=== PATIENT | male | born 1960 | race Caucasian/White ===

== ENCOUNTER 2021-01-14 07:24 | Day surgery (SDC) | payer MEDICAID ==
[~2021-01-14] VITALS: Ht 182.9 cm; Wt 99.8 kg
[~2021-01-14 07:24] MED LIST: AMIO200T33 PO; APIX5TAB PO; FERR-20 PO; FURO20TA3 PO
[2021-01-14] MEDS ORDERED: IODIXANOL 320MG/ML 100ML BTL IV ONE (07:44)
[2021-01-14] MEDS ORDERED: LIDOCAINE 2%HCL (LOCAL ANESTH.) INJ 20ML MDV ONE (07:44)
[2021-01-14] MEDS ORDERED: VERAPAMIL 2.5MG/ML INJ 2ML VIAL IV ONE (08:09)
[2021-01-14] MEDS ORDERED: fentaNYL CITRATE 100 MCG/2 ML VL ONE (08:09)
[2021-01-14] MEDS ORDERED: HEPARIN SODIUM (PORCINE) 5000 UNITS/ML 1ML VIAL ONE (08:09)
[2021-01-14] MEDS ORDERED: ANGIOMAX 250 MG VIAL IV ONE (08:09)
[2021-01-14] MEDS ORDERED: SODIUM CHL 0.9% 0 ML ONE (08:10)
[2021-01-14] MEDS ORDERED: MIDAZOLAM HCL 1MG/1ML-2 ML VIAL ONE (08:10)
[2021-01-14] MEDS ORDERED: LEVO25TA6 PO (09:24)
[2021-01-14] MEDS ORDERED: METO25TA5 PO (09:24)
[2021-01-14] MEDS ORDERED: ONDANSETRON HCL 4 MG/2 ML VIAL IV PRN (10:00)
[2021-01-14] MEDS ORDERED: ACETAMINOPHEN 500 MG TAB PO PRN (10:00)
[2021-01-14] MEDS ORDERED: HYDROcodone-ACET 5/325MG TAB PO PRN (10:00)
== END 2021-01-14 11:37 | disposition home or self-care (01) ==
LOC: CATH 07:24
PROVIDERS: ATTEND Internal Medicine Cardiovascular Disease
DX: I25.10 Atherosclerotic heart disease of native coronary artery without angina pectoris (principal); E78.5 Hyperlipidemia, unspecified; I11.0 Hypertensive heart disease with heart failure; I42.8 Other cardiomyopathies; Z68.29 Body mass index [BMI] 29.0-29.9, adult; Z20.822 Contact with and (suspected) exposure to COVID-19; Z98.890 Other specified postprocedural states; Z79.899 Other long term (current) drug therapy; Z87.891 Personal history of nicotine dependence
CPT/HCPCS: 93460; C1751; C1769; C1887; C1894; J1644; J7030; Q9967; U0003; 99152; 99153; J2250

== ENCOUNTER 2021-10-18 17:57 | Inpatient (IN) | payer MEDICAID ==
[~2021-10-18] VITALS: Ht 182.9 cm; Wt 97.0 kg
[~2021-10-18 17:57] MED LIST changes: +LEVO25TA6 PO; +METO25TA5 PO
[2021-10-18 20:32] LABS: Eosinophils # (auto) 0.1 10 ^3/uL (0-0.8); Eosinophils % (auto) 1.6 % (0.0-7.0); Lymphocytes # (auto) 1.5 10 ^3/uL (0.4-5.4); Nucleated Red Blood Cells % 0.1 %
[2021-10-18 20:34] LABS: Basophils # (auto) 0 10 ^3/uL (0-0.2); Basophils % (auto) 0.5 % (0.0-2.0); Hematocrit 48.8 % (41.0-53.0); Hemoglobin 16.4 g/dL (13.5-17.5); Lymphocytes % (auto) 17.2 % (10.0-50.0); Mean Corpuscular Hemoglobin 36.2 pg (28.0-32.0); Mean Corpuscular Hgb Conc. 33.7 g/dL (32.0-36.0); Mean Corpuscular Volume 107.3 fL (80.0-100.0); Monocytes # (auto) 0.8 10 ^3/uL (0-1.3); Monocytes % (auto) 9.7 % (0.0-12.0); Red Blood Cells 4.55 10^6/uL (4.5-5.90); Red Cell Distribution Width 15.1 % (11.8-14.3); White Blood Cell 8.5 10^3/uL (4.4-10.8)
[2021-10-18 20:50] LABS: Partial Thromboplastin Time 29.9 sec (23.6-33.0)
[2021-10-18 20:53] LABS: Albumin 3.6 g/dL (3.4-5.0); Calcium 8.7 mg/dL (8.5-10.1); Potassium 4.1 mmol/L (3.5-5.1)
[2021-10-18 21:00] LABS: BUN/Creatinine Ratio 8.4; Bilirubin, Total 0.9 mg/dL (0.2-1.0); Total Protein 8.4 g/dL (6.4-8.2)
[2021-10-19] MEDS ORDERED: TETANUS-DIPTH-ACEL PERTUSSIS 0.5ML SYR Tdap IM ONE (01:00)
[2021-10-19] MEDS ORDERED: IOHEXOL 300 MG/ML 100ML BOTTLE IJ ONE (03:52)
[2021-10-19] MEDS ORDERED: LORazepam 2MG/ML-1ML VIAL IV ONE (04:15)
[2021-10-19] MEDS ORDERED: LORazepam 2MG/ML-1ML VIAL ONE (04:16)
[2021-10-19] MEDS ORDERED: dilTIAZem 25 MG/5 ML VIAL IV ONE (06:45)
[2021-10-19] MEDS ORDERED: CLINDAMYCIN 900MG IV 50 ML IV ONE (09:15)
[2021-10-19] MEDS ORDERED: dilTIAZem 125mg/125ml BAG KIT 125 ML IV ONE (09:15)
[2021-10-19] MEDS ORDERED: MORPHINE SULFATE 4 MG/ML SYR/VIAL IV PRN (10:00)
[2021-10-19] MEDS ORDERED: NITROGLYCERIN 0.4 MG SL TAB SL PRN (10:00)
[2021-10-19] MEDS ORDERED: CLINDAMYCIN 600MG IV 50 ML IV ONE (10:00)
[2021-10-19] MEDS ORDERED: MORPHINE SULFATE INJECTION 2 MG/ML SYRG IV PRN (10:00)
[2021-10-19] MEDS ORDERED: ACETAMINOPHEN 325 MG TAB PO PRN (10:00)
[2021-10-19] MEDS ORDERED: ONDANSETRON HCL 4 MG/2 ML VIAL IV PRN (10:00)
[2021-10-19] MEDS ORDERED: dilTIAZem 125mg/125ml BAG KIT 125 ML IV SCH ×2 (10:15→16:45)
[2021-10-19] MEDS: SODIUM CHLORIDE 0.9% 1,000 ML IV SCH ×2 (10:25→17:56)
[2021-10-19] MEDS ORDERED: AMIODARONE 450mg/250ml AE 250 ML IV SCH ×2 (11:30→17:30)
[2021-10-19] MEDS: FOLIC ACID 1 MG, MULTIPLE VITAMIN 10 ML, MAGNESIUM SULF SDV 50% 8 MEQ, THIAMINE INJ 100... INJ SCH ×5 (12:30)
[2021-10-19] MEDS: LORazepam 2MG/ML-1ML VIAL IV PRN (13:33)
[2021-10-19] MEDS: chlordiazePOXIDE HCL 25 MG CAP PO PRN (13:33)
[2021-10-19] MEDS ORDERED: hydrALAZINE HCL 20 MG/ML VL IV PRN (16:45)
[2021-10-19] MEDS: SACUBITRIL-VALSARTAN 24mg/26mg TAB PO SCH (17:29)
[2021-10-19] MEDS: CARVEDILOL 3.125 MG TAB PO SCH (17:29)
[2021-10-20] MEDS: SODIUM CHLORIDE 0.9% 1,000 ML IV SCH ×3 (03:08→19:20)
[2021-10-20] MEDS: LEVOTHYROXINE SODIUM 25 MCG TAB PO SCH (07:58)
[2021-10-20 08:46] LABS: Basophils # (auto) 0 10 ^3/uL (0-0.2); Basophils % (auto) 0.6 % (0.0-2.0); Eosinophils # (auto) 0.1 10 ^3/uL (0-0.8); Eosinophils % (auto) 1.6 % (0.0-7.0); Hematocrit 45.5 % (41.0-53.0); Hemoglobin 15.6 g/dL (13.5-17.5); Lymphocytes # (auto) 0.9 10 ^3/uL (0.4-5.4); Lymphocytes % (auto) 11.4 % (10.0-50.0); Mean Corpuscular Hemoglobin 36.9 pg (28.0-32.0); Mean Corpuscular Hgb Conc. 34.3 g/dL (32.0-36.0); Mean Corpuscular Volume 107.8 fL (80.0-100.0); Monocytes # (auto) 1.1 10 ^3/uL (0-1.3); Monocytes % (auto) 13.9 % (0.0-12.0); Neutrophils # (auto) 5.7 10 ^3/uL (1.6-8.6); Neutrophils % (auto) 72.5 % (37.0-80.0); Nucleated Red Blood Cells % 0.1 %; Red Blood Cells 4.22 10^6/uL (4.5-5.90); Red Cell Distribution Width 14.7 % (11.8-14.3); White Blood Cell 7.8 10^3/uL (4.4-10.8)
[2021-10-20 08:55] LABS: Potassium 3.8 mmol/L (3.5-5.1)
[2021-10-20 09:11] LABS: Albumin 3.2 g/dL (3.4-5.0); BUN/Creatinine Ratio 10.8; Bilirubin, Total 2.5 mg/dL (0.2-1.0); Calcium 8.6 mg/dL (8.5-10.1); Total Protein 7.3 g/dL (6.4-8.2)
[2021-10-20] MEDS: dilTIAZem HCL 60 MG TAB PO SCH ×4 (09:32→23:25)
[2021-10-20] MEDS: CARVEDILOL 3.125 MG TAB PO SCH ×2 (09:33→22:00)
[2021-10-20] MEDS: SACUBITRIL-VALSARTAN 24mg/26mg TAB PO SCH ×2 (09:33→22:00)
[2021-10-20] MEDS: chlordiazePOXIDE HCL 25 MG CAP PO PRN ×2 (09:33→23:39)
[2021-10-20] MEDS: LORazepam 2MG/ML-1ML VIAL IV PRN (09:33)
[2021-10-20] MEDS ORDERED: LEVO75TA6 PO (10:13)
[2021-10-20] MEDS ORDERED: METO25TA93 PO (10:13)
[2021-10-20] MEDS: FOLIC ACID 1 MG, MULTIPLE VITAMIN 10 ML, MAGNESIUM SULF SDV 50% 8 MEQ, THIAMINE INJ 100... INJ SCH ×5 (13:13)
[2021-10-20] MEDS: HYDROcodone-ACET 5/325MG TAB PO PRN (23:24)
[2021-10-21] MEDS: SODIUM CHLORIDE 0.9% 1,000 ML IV SCH ×4 (03:40→22:00)
[2021-10-21] MEDS: dilTIAZem HCL 60 MG TAB PO SCH ×3 (06:22→19:32)
[2021-10-21] MEDS: CARVEDILOL 3.125 MG TAB PO SCH ×3 (07:32→07:34)
[2021-10-21] MEDS: chlordiazePOXIDE HCL 25 MG CAP PO PRN (07:48)
[2021-10-21] MEDS: HYDROcodone-ACET 5/325MG TAB PO PRN (07:48)
[2021-10-21] MEDS: LEVOTHYROXINE SODIUM 25 MCG TAB PO SCH (07:48)
[2021-10-21] MEDS ORDERED: IOHEXOL 350 MG/ML 100ML IJ ONE (10:04)
[2021-10-21] MEDS: SACUBITRIL-VALSARTAN 24mg/26mg TAB PO SCH ×2 (14:22→22:00)
[2021-10-21] MEDS: CLINDAMYCIN 600MG IV 50 ML IV SCH ×2 (17:06→22:00)
[2021-10-21 18:26] VITALS: BP 138/100
[2021-10-21] MEDS: FOLIC ACID 1 MG, MULTIPLE VITAMIN 10 ML, MAGNESIUM SULF SDV 50% 8 MEQ, THIAMINE INJ 100... INJ SCH ×5 (19:35)
[2021-10-21 20:00] VITALS: BP 115/79
[2021-10-21 21:00] VITALS: BP 115/79
[2021-10-22] MEDS: dilTIAZem HCL 60 MG TAB PO SCH ×4 (00:20→18:00)
[2021-10-22] MEDS: LORazepam 2MG/ML-1ML VIAL IV PRN ×2 (01:28→22:21)
[2021-10-22] MEDS: POTASSIUM CHL 10MEQ/50ML 50 ML IV SCH ×3 (02:30→19:10)
[2021-10-22 06:19] VITALS: BP 122/76
[2021-10-22] MEDS: LEVOTHYROXINE SODIUM 25 MCG TAB PO SCH (07:00)
[2021-10-22] MEDS: CLINDAMYCIN 600MG IV 50 ML IV SCH ×3 (07:00→22:03)
[2021-10-22 08:14] LABS: Albumin 1.9 g/dL (3.4-5.0); BUN/Creatinine Ratio 20.8
[2021-10-22 08:17] LABS: Bilirubin, Total 1.2 mg/dL (0.2-1.0); Total Protein 4.7 g/dL (6.4-8.2)
[2021-10-22 08:25] LABS: Potassium 2.9 mmol/L (3.5-5.1)
[2021-10-22 09:00] VITALS: BP 98/64
[2021-10-22] MEDS: SACUBITRIL-VALSARTAN 24mg/26mg TAB PO SCH ×2 (10:29→22:22)
[2021-10-22] MEDS: CARVEDILOL 3.125 MG TAB PO SCH ×2 (10:29→22:02)
[2021-10-22 13:00] VITALS: BP 86/40
[2021-10-22] MEDS: SODIUM CHLORIDE 0.9% 1,000 ML IV SCH (13:00)
[2021-10-22] MEDS: FOLIC ACID 1 MG, MULTIPLE VITAMIN 10 ML, MAGNESIUM SULF SDV 50% 8 MEQ, THIAMINE INJ 100... INJ SCH ×5 (13:41)
[2021-10-22] MEDS ORDERED: POTASSIUM EFFERVESENT TAB 25 MEQ GT ONE (15:45)
[2021-10-22 17:00] VITALS: BP 112/68
[2021-10-23] MEDS ORDERED: POTASSIUM CHL 10MEQ/50ML 50 ML IV ONE ×3 (01:34→03:25)
[2021-10-23] MEDS: POTASSIUM CHL 10MEQ/50ML 50 ML IV SCH (03:30)
[2021-10-23] MEDS: dilTIAZem HCL 60 MG TAB PO SCH ×3 (06:05→12:00)
[2021-10-23] MEDS: LEVOTHYROXINE SODIUM 25 MCG TAB PO SCH (06:05)
[2021-10-23] MEDS: CLINDAMYCIN 600MG IV 50 ML IV SCH ×2 (06:05→14:32)
[2021-10-23 06:30] LABS: Albumin 2.5 g/dL (3.4-5.0); Calcium 7.6 mg/dL (8.5-10.1); Potassium 3.9 mmol/L (3.5-5.1)
[2021-10-23 06:32] LABS: BUN/Creatinine Ratio 16.4
[2021-10-23 06:44] LABS: Bilirubin, Total 1.4 mg/dL (0.2-1.0); Total Protein 6.1 g/dL (6.4-8.2)
[2021-10-23 08:00] VITALS: BP_SYST 115; BP_SYST 131; BP_DIAS 79; BP_DIAS 84
[2021-10-23] MEDS: CARVEDILOL 3.125 MG TAB PO SCH (10:25)
[2021-10-23] MEDS: SACUBITRIL-VALSARTAN 24mg/26mg TAB PO SCH (10:26)
[2021-10-23 12:00] VITALS: BP 119/73
[2021-10-23] MEDS: FOLIC ACID 1 MG, MULTIPLE VITAMIN 10 ML, MAGNESIUM SULF SDV 50% 8 MEQ, THIAMINE INJ 100... INJ SCH ×5 (14:34)
[2021-10-23 16:00] VITALS: BP 124/85
[2021-10-23] MEDS ORDERED: ASPI1CHW15 PO (16:34)
[2021-10-23] MEDS ORDERED: SULF400T11 PO (16:36)
[2021-10-23] MEDS ORDERED: CHL5C GT (16:49)
== END 2021-10-23 21:20 | disposition home or self-care (01) | DRG 383 ==
LOC: EDBD 17:57 → ER 18:01 → OVERFLOW 10-19 09:58 → TELE-WESTW 10-21 13:30
PROVIDERS: ADMIT Internal Medicine; ATTEND Internal Medicine
PROC: 3E0234Z Introduction of Serum, Toxoid and Vaccine into Muscle, Percutaneous Approach (ICD-10-PCS; principal; 2021-10-19)
DX: L03.113 Cellulitis of right upper limb (principal); I50.23 Acute on chronic systolic (congestive) heart failure; I42.8 Other cardiomyopathies; I27.20 Pulmonary hypertension, unspecified; I48.20 Chronic atrial fibrillation, unspecified; S01.01XA Laceration without foreign body of scalp, initial encounter; S50.11XA Contusion of right forearm, initial encounter; Z20.822 Contact with and (suspected) exposure to COVID-19; Y90.9 Presence of alcohol in blood, level not specified; E03.9 Hypothyroidism, unspecified; E66.01 Morbid (severe) obesity due to excess calories; I25.10 Atherosclerotic heart disease of native coronary artery without angina pectoris; J44.9 Chronic obstructive pulmonary disease, unspecified; I16.1 Hypertensive emergency; F10.239 Alcohol dependence with withdrawal, unspecified; F10.229 Alcohol dependence with intoxication, unspecified; R29.6 Repeated falls; Z91.81 History of falling; Z79.01 Long term (current) use of anticoagulants; Z79.899 Other long term (current) drug therapy; Z23 Encounter for immunization
CPT/HCPCS: 36415; 70450; 71045; 72125; 73090; 73201; 80053; 80320; 82962; 83735; 84484; 85025; 85610; 85730; 86141; 87081; 87426; 90471; 90715; 93005; 93306; 93971; 96365; 96368; 96375; 97163; 99291; G0378; J3490

== ENCOUNTER → 2021-10-25 | Emergency (ER) | payer MEDICAID ==
[~2021-10-25] VITALS: Ht 182.9 cm; Wt 106.6 kg
[~2021-10-25] MED LIST changes: +ASPI1CHW15 PO; +CHL5C GT; +LEVO75TA6 PO; +METO25TA93 PO; +SULF400T11 PO
[2021-10-25 06:51] VITALS: BP 131/83
== END | disposition home or self-care (01) ==
LOC: ER 00:38
DX: S50.11XD Contusion of right forearm, subsequent encounter (principal); Z79.82 Long term (current) use of aspirin; Z79.899 Other long term (current) drug therapy; X58.XXXD Exposure to other specified factors, subsequent encounter